=== PATIENT | female | born 1965 | race Caucasian/White ===

== ENCOUNTER 2019-09-21 19:07 | Emergency (ER) | payer BC ==
[~2019-09-21] VITALS: Ht 160 cm; Wt 82.7 kg
[2019-09-21 19:14] VITALS: Ht 160 cm; Wt 82.7 kg
[2019-09-21 20:13] LABS: BASOPHIL % 0.3 % (0-2); PLATELET COUNT 266 x10^3mcL (130-400); RED CELL DISTRIBUTION WIDTH 14.5 % (11.5-14.5)
[2019-09-21 20:32] LABS: ALBUMIN 3.7 g/dL (3.4-5.0); ALKALINE PHOSPHATASE 124 U/L (46-116); ALT/SGPT 45 U/L (14-59); AST/SGOT 27 U/L (15-37); BILIRUBIN TOTAL 0.3 mg/dL (0.20-1.00); CHLORIDE SERUM 104 mmol/L (98-107); CREATININE SERUM 0.8 mg/dL (0.6-1.0); GFR1 > 60 mL/min; GLUCOSE SERUM 95 mg/dL (74-106); SODIUM SERUM 139 mmol/L (136-145)
[2019-09-21 22:33] LABS: PATH REVIEW for HEMA NO
[2019-09-21 22:52] VITALS: BP 123/67
== END 2019-09-21 22:52 | disposition home or self-care (01) ==
LOC: ED 19:07
DX: R07.89 Other chest pain (principal); I10 Essential (primary) hypertension; F32.9 Major depressive disorder, single episode, unspecified; Z88.2 Allergy status to sulfonamides
CPT/HCPCS: 36415; 85378

== ENCOUNTER 2020-03-04 00:19 | Emergency (ER) | payer BC ==
[~2020-03-04] VITALS: Ht 160 cm; Wt 79.8 kg
[2020-03-04 00:21] VITALS: Ht 160 cm; Wt 79.8 kg
[2020-03-04 01:00] LABS: BASOPHIL % 0.5 % (0-2); PLATELET COUNT 263 x10^3mcL (130-400); RED CELL DISTRIBUTION WIDTH 15.1 % (11.5-14.5)
[2020-03-04 01:09] LABS: CALCIUM 10.4 mg/dL (8.5-10.1); CARBON DIOXIDE 27.4 mmol/L (21-32); CHLORIDE SERUM 104 mmol/L (98-107); GFR1 > 60 mL/min; GLUCOSE SERUM 104 mg/dL (74-106); POTASSIUM SERUM 3.5 mmol/L (3.5-5.1); SODIUM SERUM 139 mmol/L (136-145)
[2020-03-04 01:13] LABS: ALBUMIN 3.7 g/dL (3.4-5.0); ALKALINE PHOSPHATASE 100 U/L (46-116); ALT/SGPT 35 U/L (14-59); AST/SGOT 21 U/L (15-37); TOTAL PROTEIN, SERUM 7.3 g/dL (6.4-8.2)
[2020-03-04 02:05] VITALS: BP 120/59
== END 2020-03-04 02:05 | disposition home or self-care (01) ==
LOC: ED 00:19
PROVIDERS: Emergency Medicine
DX: F41.1 Generalized anxiety disorder (principal); L25.9 Unspecified contact dermatitis, unspecified cause; I10 Essential (primary) hypertension; Z90.49 Acquired absence of other specified parts of digestive tract; Z90.710 Acquired absence of both cervix and uterus; Z88.2 Allergy status to sulfonamides
CPT/HCPCS: 36415; Q0092

== ENCOUNTER 2020-04-18 10:39 | Emergency (ER) | payer BC, SELFPAY ==
[~2020-04-18] VITALS: Ht 160 cm; Wt 82.1 kg
[2020-04-18 11:30] VITALS: Ht 160 cm; Wt 82.1 kg
[2020-04-18 12:05] VITALS: BP 127/76
== END 2020-04-18 12:20 | disposition home or self-care (01) ==
LOC: ED 10:39
DX: U07.1 COVID-19 (principal); F41.9 Anxiety disorder, unspecified; I10 Essential (primary) hypertension; Z88.2 Allergy status to sulfonamides

== ENCOUNTER 2020-10-14 06:35 | Emergency (ER) | payer BC ==
[~2020-10-14] VITALS: Ht 157.5 cm; Wt 82.3 kg
[2020-10-14 06:42] VITALS: Ht 157.5 cm; Wt 82.3 kg
[2020-10-14 08:51] LABS: BASOPHIL % 0.4 % (0.2-1.3); PLATELET COUNT 283 x10^3mcL (179-408); RED CELL DISTRIBUTION WIDTH 14.3 % (12.3-17.7)
[2020-10-14 09:00] VITALS: BP 114/73
[2020-10-14 09:14] LABS: CALCIUM 9.9 mg/dL (8.5-10.1); CARBON DIOXIDE 25.4 mmol/L (21-32); CHLORIDE SERUM 106 mmol/L (98-107); CREATININE SERUM 0.6 mg/dL (0.6-1.0); GFR1 > 60 mL/min; GLUCOSE SERUM 99 mg/dL (74-106); POTASSIUM SERUM 3.4 mmol/L (3.5-5.1); SODIUM SERUM 141 mmol/L (136-145)
[2020-10-14 09:18] LABS: ALBUMIN 3.4 g/dL (3.4-5.0); ALKALINE PHOSPHATASE 98 U/L (46-116); ALT/SGPT 31 U/L (14-59); AST/SGOT 27 U/L (15-37); BILIRUBIN TOTAL 0.3 mg/dL (0.20-1.00); LIPASE 85 IU/L (73-393); TOTAL PROTEIN, SERUM 7.1 g/dL (6.4-8.2)
[2020-10-14] MEDS ORDERED: AUGMENTIN 875-1 EACH PO (09:37)
[2020-10-14] MEDS ORDERED: POTASSIUM CHLO20 ME4 PO (09:37)
== END 2020-10-14 10:15 | disposition home or self-care (01) ==
LOC: ED 06:35
PROVIDERS: Emergency Medicine
DX: E87.6 Hypokalemia (principal); I10 Essential (primary) hypertension; H73.019 Bullous myringitis, unspecified ear; Z88.2 Allergy status to sulfonamides; Z86.2 Personal history of diseases of the blood and blood-forming organs and certain disorders involving the immune mechanism